=== PATIENT | male | born 1970 | race Caucasian/White ===

== ENCOUNTER 2019-03-07 10:00 | Day surgery (SDC) | payer BC ==
[2019-03-07] MEDS: SOD CHLORIDE 0.9% 1,000 ML IV (10:55)
[2019-03-07 11:00] LABS: ADD MAN DIFF? NO
[2019-03-07] MEDS ORDERED: CEFAZOLIN 2 GM/50 ML (PMX) 50 ML IVPB (11:00)
[2019-03-07 11:02] LABS: WHITE BLOOD COUNT 6.3 10^3/ul (4.8-10.8)
[2019-03-07 11:02] LABS: BASOPHIL # 0.1 10^3/ul (0.0-0.1); BASOPHILS % 0.8 % (0.0-2.0); EOSINOPHILS # 0.1 10^3/ul (0.0-0.5); EOSINOPHILS % 1.8 % (0.0-7.0); HEMATOCRIT 47.7 % (42.0-52.0); HEMOGLOBIN 15.8 g/dl (14.0-18.0); LYMPHOCYTES # 1.5 10^3/ul (0.8-2.9); LYMPHOCYTES % 23.2 % (15.0-51.0); MEAN CORPUSCULAR HEMOGLOBIN 28.9 pg (29.0-33.0); MEAN CORPUSCULAR HGB CONC 33.1 g/dl (32.0-37.0); MEAN CORPUSCULAR VOLUME 87.2 fl (82.0-101.0); MEAN PLATELET VOLUME 11.2 fl (7.4-10.4); MONOCYTE # 0.5 10^3/ul (0.3-0.9); MONOCYTES % 7.3 % (0.0-11.0); NEUTROPHIL # 4.2 10^3/ul (1.6-7.5); NEUTROPHILS % 66.4 % (39.0-77.0); PLATELET COUNT 169 10^3/UL (140-415); RED BLOOD COUNT 5.47 10^6/ul (4.70-6.10); RED CELL DISTRIBUTION WIDTH 12.8 % (11.5-14.5)
[2019-03-07 11:24] LABS: ALANINE AMINOTRANSFERASE 43 IU/L (13-69); ALBUMIN 4.2 g/dl (3.3-4.9); ALBUMIN/GLOBULIN RATIO 1.27; ALKALINE PHOSPHATASE 88 IU/L (42-121); ANION GAP 5 (5-13); ASPARTATE AMINO TRANSFERASE 24 IU/L (15-46); BILIRUBIN,INDIRECT 0.7 mg/dl (0-1.1); BILIRUBIN,TOTAL 0.7 mg/dl (0.2-1.3); BLOOD UREA NITROGEN 16 mg/dl (7-20); CARBON DIOXIDE 26 mmol/L (21-31); CHLORIDE 108 mmol/L (97-110); CREATININE 0.68 mg/dl (0.61-1.24); Estimated GFR > 60 mL/min (>60); GLUCOSE 97 mg/dl (70-220); INR 0.89; POTASSIUM 3.8 mmol/L (3.5-5.1); PROTIME 12.2 Sec (11.9-14.9); SODIUM 139 mmol/L (135-144); TOTAL PROTEIN 7.5 g/dl (6.1-8.1)
[2019-03-07] MEDS ORDERED: FENTAnyl 50 MCG/ML VIAL IV ×3 (11:30)
[2019-03-07] MEDS ORDERED: DIPHENHYDRAMINE 50 MG INJ IV (11:30)
[2019-03-07] MEDS ORDERED: HYDROmorphONE 1 MG/5 ML IV SYRINGE IV ×3 (11:30)
[2019-03-07] MEDS ORDERED: KETOROLAC 30 MG INJ IV (11:30)
[2019-03-07] MEDS ORDERED: OXYCODONE/ACETAMINOPHEN (5/325) TAB PO ×2 (11:30)
[2019-03-07] MEDS ORDERED: MEPERIDINE 25 MG INJ IV (11:30)
[2019-03-07] MEDS ORDERED: GLYCOPYRROLATE 0.4 MG INJ (11:33)
[2019-03-07] MEDS ORDERED: PROPOFOL 20 ML (11:33)
[2019-03-07] MEDS ORDERED: MIDAZOLAM 1 MG/ML 2 ML INJ (11:33)
[2019-03-07] MEDS ORDERED: CEFAZOLIN 1 GM INJ (11:33)
[2019-03-07] MEDS ORDERED: ROCURONIUM 50 MG INJ (11:33)
[2019-03-07] MEDS ORDERED: DESFLURANE 15 MIN (11:33)
[2019-03-07] MEDS ORDERED: NEOSTIGMINE 3 MG/3 ML SYRINGE (11:33)
[2019-03-07] MEDS ORDERED: METOCLOPRAMIDE 10 MG INJ (11:34)
[2019-03-07] MEDS ORDERED: ROPIVACAINE 0.5 % 30 ML VIAL (11:34)
[2019-03-07] MEDS ORDERED: ONDANSETRON 4 MG INJ (11:34)
[2019-03-07] MEDS ORDERED: KETOROLAC 30 MG INJ (11:37)
[2019-03-07] MEDS ORDERED: SUCCINYLCHOLINE CHLORIDE 100 MG/5 ML SYG IV (11:56)
[2019-03-07] MEDS ORDERED: HYDROmorphONE 2 MG/ML SYG (12:12)
[2019-03-07] MEDS ORDERED: LIDOCAINE 2% (SDV) 5 ML INJ (12:14)
[2019-03-07] MEDS: POLYMYXIN/BACITRACIN 1L IRRIG IRR (12:24)
[2019-03-07] MEDS: HYDROCODONE/APAP (5/325) TAB PO (13:08)
[2019-03-07] MEDS: ONDANSETRON 4 MG INJ IV (13:51)
== END 2019-03-07 14:05 | disposition home or self-care (01) ==
LOC: SDS 10:00
DX: K40.30 Unilateral inguinal hernia, with obstruction, without gangrene, not specified as recurrent (principal); I10 Essential (primary) hypertension
CPT/HCPCS: 49507; 80053; 85025; 85610; 85730

== ENCOUNTER 2019-03-11 11:54 | Day surgery (SDC) | payer BC ==
[2019-03-11] MEDS: SOD CHLORIDE 0.9% 1,000 ML IV (12:52)
[2019-03-11] MEDS ORDERED: SOD CHLORIDE 0.9% 1,000 ML IV (14:38)
[2019-03-11] MEDS: POLYMYXIN/BACITRACIN 1L IRRIG (14:49)
[2019-03-11] MEDS: BUPIVACAINE 0.25% (MPF) 30 ML INJ (14:49)
[2019-03-11] MEDS ORDERED: CEFAZOLIN 2 GM/50 ML (PMX) 50 ML IVPB (15:00)
[2019-03-11] MEDS ORDERED: HYDROmorphONE 0.2 MG/ML PCA IV (15:00)
[2019-03-11] MEDS ORDERED: KETOROLAC 15 MG INJ IV (15:00)
[2019-03-11] MEDS ORDERED: HYDROCODONE/APAP (5/325) TAB PO ×2 (15:00→16:30)
[2019-03-11] MEDS ORDERED: NALOXONE (0.4 MG/ML) INJ IV (15:00)
[2019-03-11] MEDS ORDERED: PROPOFOL 20 ML (15:17)
[2019-03-11] MEDS ORDERED: LIDOCAINE 2% (SDV) 5 ML INJ (15:17)
[2019-03-11] MEDS ORDERED: ROCURONIUM 50 MG INJ (15:17)
[2019-03-11] MEDS ORDERED: MIDAZOLAM 1 MG/ML 2 ML INJ (15:17)
[2019-03-11] MEDS ORDERED: ROPIVACAINE 0.5 % 30 ML VIAL (15:24)
[2019-03-11] MEDS ORDERED: HYDROmorphONE 1 MG/5 ML IV SYRINGE IV (15:30)
[2019-03-11] MEDS ORDERED: LABETALOL HCL 20MG INJ IV (15:30)
[2019-03-11] MEDS ORDERED: ONDANSETRON 4 MG INJ IV (15:30)
[2019-03-11] MEDS ORDERED: ROPIVACAINE 0.2% 20 ML VIAL (15:31)
[2019-03-11] MEDS ORDERED: CEFAZOLIN 1 GM INJ (15:33)
[2019-03-11] MEDS: CEFAZOLIN 2 GM/50 ML (PMX) 50 ML IVPB (15:46)
[2019-03-11] MEDS ORDERED: SUGAMMADEX SODIUM 200 MG/2 ML VIAL IV (16:10)
[2019-03-11] MEDS ORDERED: FENTAnyl 50 MCG/ML VIAL (16:20)
[2019-03-11] MEDS ORDERED: KETOROLAC 30 MG INJ (16:21)
[2019-03-11] MEDS: HYDROmorphONE 1 MG/5 ML IV SYRINGE IV ×2 (16:30→16:58)
[2019-03-11] MEDS: METOCLOPRAMIDE 10 MG INJ IV (17:00)
== END 2019-03-11 17:29 | disposition home or self-care (01) ==
LOC: SDS 11:54
DX: K43.6 Other and unspecified ventral hernia with obstruction, without gangrene (principal); I10 Essential (primary) hypertension
CPT/HCPCS: 49653